=== PATIENT | female | born 1935 | race African-American/Black ===

== ENCOUNTER 2017-03-04 15:21 | Emergency (ER) | payer MEDICARE, MEDICAID ==
[~2017-03-04] VITALS: Ht 170.2 cm; Wt 55.0 kg
[~2017-03-04 15:21] MED LIST: CLOP75TA2 PO; FLUD0.1T PO; LEVO250T2 PO; METO-298 PO; METO25TA6 PO; MIDO2.5T PO; MIRT15TA6 PO; MULT-1146 PO; POTA-9 PO; RISP0.2514 PO
[2017-03-04 16:58] LABS: EOSINOPHILS % 2.8 % (0.0-5.0); HEMATOCRIT. 34.3 % (36.0-48.0); HEMOGLOBIN. 11.5 g/dL (12.0-16.0); LYMPHOCYTES % 34.2 % (20.0-50.0); MEAN CORPUSCULAR HEMOGLOBIN 31.1 pg (28.0-32.0); MEAN CORPUSCULAR VOLUME 93.1 fL (81.0-99.0); MEAN PLATELET VOLUME 9.3 fl (7.4-10.4); MONOCYTES % 13.5 % (2.0-8.0); NEUTROPHILS % 48.5 % (40.0-76.0); PLATELET 157 x1000/uL (130-400); RED BLOOD CELL COUNT 3.69 mill/uL (4.2-5.4); RED CELL DISTRIBUTION WIDTH 14.8 % (11.6-14.6)
[2017-03-04 17:07] LABS: INR 1.1; PROTHROMBIN TIME 11.2 sec (9.4-11.6)
[2017-03-04 17:09] LABS: CHLORIDE 108 mEq/L (98-107)
[2017-03-04 17:12] LABS: CARBON DIOXIDE 27 mEq/L (21-32)
[2017-03-04 17:18] LABS: TROPONIN I < 0.02 ng/mL (0.00-0.04)
[2017-03-04 18:49] LABS: CLARITY URINE CLOUDY (CLEAR); COLOR URINE YELLOW (YELLOW); GLUCOSE URINE NEGATIVE (NEGATIVE); KETONES URINE NEGATIVE (NEGATIVE); LEUKOCYTE ESTERASE URINE 3+ (NEGATIVE); NITRITE URINE NEGATIVE (NEGATIVE); OCCULT BLOOD URINE NEGATIVE (NEGATIVE); PH URINE 7.5 (4.5-8.0); PROTEIN URINE NEGATIVE (NEGATIVE); SPECIFIC GRAVITY URINE 1.015 (1.005-1.030)
[2017-03-04 19:54] VITALS: BP 152/84
== END 2017-03-04 20:18 | disposition home or self-care (01) ==
LOC: ER 16:33
DX: R07.9 Chest pain, unspecified (principal); N39.0 Urinary tract infection, site not specified; I10 Essential (primary) hypertension; F03.90 Unspecified dementia, unspecified severity, without behavioral disturbance, psychotic disturbance, mood disturbance, and anxiety; M32.9 Systemic lupus erythematosus, unspecified; Z74.01 Bed confinement status; Z88.0 Allergy status to penicillin
CPT/HCPCS: 36415; 71010; 80053; 81001; 83690; 84484; 85025; 85610; 85730; 93005; 99285